=== PATIENT | female | born 2000 | race Caucasian/White ===

== ENCOUNTER 2018-12-08 22:30 | Emergency (ER) | payer OTHER ==
[2018-12-08] MEDS ORDERED: ACETAMINOPHEN 500 MG TAB PO ONE (22:43)
[2018-12-08] MEDS ORDERED: IBUPROFEN 600 MG TAB PO ONE (22:43)
--- NOTE | 2018-12-08 23:45 | EDPHY ---
H & P Stated Complaint: FLU LIKE SX 1 DAY, FEVEER COUGH THROAT PAIN Time Seen by Provider: 12/08/18 22:42 HPI/ROS: HPI The patient presents with sore throat, cough, fever, neck pain. Symptoms started this morning with sore throat and have gotten progressively worse. She reports pain in her posterior neck bilaterally, moderate in severity which feels like a muscle ache. She has had a mild headache which is diffuse. She does not have any photophobia. She has had clear rhinorrhea and nonproductive cough. She denies any sick contacts.. REVIEW OF SYSTEMS 10 systems were reviewed and negative with the exception of the elements mentioned in the history of present illness. PMHx: Healthy Soc Hx: Student at [employer] PHYSICAL General Appearance: Alert, no distress Eyes: Pupils equal and round no pallor or injection ENT, Mouth: Mucous membranes moist, posterior pharynx is erythematous without exudate Respiratory: There are no retractions, lungs are clear to auscultation Cardiovascular: Regular rate and rhythm Gastrointestinal: Abdomen is soft and non-tender, no masses, bowel sounds normal Neurological: A&O, moves all extremities Skin: Warm and dry, no rashes Musculoskeletal: Neck is supple non tender , full range of motion Extremities: symmetrical, full range of motion Psychiatric: Patient is oriented X 3, there is no agitation Source: Patient Exam Limitations: No limitations - Personal History LMP (Females 10-55): 15-21 Days Ago Current Tetanus/Diphtheria Vaccine: Yes Current Tetanus Diphtheria and Acellular Pertussis (TDAP): Yes - Medical/Surgical History Hx Asthma: No Hx Chronic Respiratory Disease: No Hx Diabetes: No Hx Cardiac Disease: No Hx Renal Disease: No Hx Cirrhosis: No Hx Alcoholism: No Hx HIV/AIDS: No Hx Splenectomy or Spleen Trauma: No Other PMH: DENIES - Social History Smoking Status: Never smoked Constitutional: Initial Vital Signs Temperature (C) 37.7 C 12/08/18 22:36 Heart Rate 89 12/08/18 22:36 Respiratory Rate 18 12/08/18 22:36 Blood Pressure 133/89 H 12/08/18 22:36 O2 Sat (%) 98 12/08/18 22:36 O2 Delivery Mode Room Air Allergies/Adverse Reactions: No Known Allergies Allergy (Unverified 12/08/18 22:38) Home Medications: Medication Instructions Recorded Oseltamivir Phosphate [Tamiflu 75 75 mg PO BID 5 Days cap 12/08/18 mg (*)] Medical Decision Making Differential Diagnosis: 18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 Here, she is slightly febrile. She is nontoxic appearing and does not have nuchal rigidity or photophobia. She does have injected posterior pharynx. Differential diagnosis includes influenza, viral URI, less likely meningitis. Here, she received ibuprofen and Tylenol. Rapid flu testing was negative, however given her symptomatology I feel influenza is quite likely. I will treat her with Tamiflu given my suspicion for the flu. Her vital signs have normalized she feels well enough to go home. - Data Points Laboratory Results: 12/08/18 22:47 Nasal Influenza A PCR NEGATIVE FOR FLU A (NEGATIVE) Nasal Influenza B PCR NEGATIVE FOR FLU B (NEGATIVE) Medications Given: Discontinued Medications Acetaminophen (Tylenol) 1,000 mg PO EDNOW ONE Stop: 12/08/18 22:44 Last Admin: 12/08/18 22:47 Dose: 1,000 mg Ibuprofen (Motrin) 600 mg PO EDNOW ONE Stop: 12/08/18 22:44 Last Admin: 12/08/18 22:47 Dose: 600 mg Oseltamivir Phosphate (Tamiflu) 75 mg PO EDNOW ONE Stop: 12/08/18 23:54 Last Admin: 12/08/18 23:59 Dose: 75 mg Departure - Departure Disposition: Home, Routine, Self-Care Clinical Impression: Neck pain Upper respiratory infection Qualifiers: URI type: unspecified viral URI Qualified Code(s): J06.9 - Acute upper respiratory infection, unspecified Condition: Good Instructions: Influenza (ED), Upper Respiratory Infection (ED) Additional Instructions: Even though your flu test here was negative, I suspect that you have the flu. I recommend you take ibuprofen 400 mg with acetaminophen 650 mg every 6 hr as needed for pain or fever. Return to the emergency department if your worse in any way. Referrals: [facility] [Other] - As per Instructions Stand Alone Forms: School Excuse, Work Excuse Prescriptions: Oseltamivir Phosphate [Tamiflu 75 mg (*)] 75 mg PO BID 5 Days cap
[2018-12-08] MEDS ORDERED: OSELTAMIVIR PHOSPHATE 75 MG CAP PO ONE (23:53)
[2018-12-09 00:04] VITALS: BP 116/74
== END 2018-12-09 00:02 | disposition home or self-care (01) ==
DX: M54.2 Cervicalgia (principal); J06.9 Acute upper respiratory infection, unspecified